=== PATIENT | female | born 1950 | race Caucasian/White ===

== ENCOUNTER 2017-12-08 15:52 | Emergency (ER) | payer MEDICARE, MEDICAID ==
--- NOTE | 2017-12-08 16:42 | RAD ---
Indication: Right foot pain. 4 views of the right foot reviewed. Diffuse osteopenia is noted. There is suggestion of a fracture at the base of the proximal phalanx of the fifth digit. No other fractures are noted. Clinical correlation is suggested. IMPRESSION: There is suggestion of a fracture at the base of the proximal end of the fifth digit.
[2017-12-08] MEDS ORDERED: oxyCODONE/Acetamin 5/325 MG* TAB PO ONE (16:49)
--- NOTE | 2017-12-08 17:01 | ED ---
Lower Extremity - HPI Summary HPI Summary: 66-year-old female presents with right foot pain today. States she kicked an ice block and has had pain continuously in her right foot. States her right foot has been swelling. She has a previous fractured her fifth metatarsal when she was younger. She states she has some pain right there and also pain in her forefoot and midfoot. She is not on blood thinners. She denies any numbness or tingling. She denies any other injury. She has history of fibromyalgia. - History of Current Complaint Chief Complaint: EDExtremityLower Stated Complaint: RT FT INJURY Time Seen by Provider: 12/08/17 16:01 Pain Intensity: 8 - Allergies/Home Medications Allergies/Adverse Reactions: Allergies Allergy/AdvReac Type Severity Reaction Status Date / Time MS Penicillins [Penicillins] Allergy Rash Verified 12/08/17 16:00 sesame seeds Allergy anaphylaxis Uncoded 12/08/17 16:00 PMH/Surg Hx/FS Hx/Imm Hx Endocrine/Hematology History: Denies: Hx Anticoagulant Therapy, Hx Blood Disorders Respiratory History: Reports: Hx Asthma Musculoskeletal History: Reports: Hx Rheumatoid Arthritis, Hx Osteoporosis Infectious Disease History: Unable to Obtain/Confirm Infectious Disease History: Denies: Traveled Outside the [place] in Last 30 Days - Family History Known Family History: Positive: Hypertension - Social History Alcohol Use: None Substance Use Type: Reports: Marijuana Smoking Status (MU): Never Smoked Tobacco Review of Systems Negative: Fever Negative: Chest Pain Negative: Shortness Of Breath Positive: Myalgia - right foot pain All Other Systems Reviewed And Are Negative: Yes Physical Exam Triage Information Reviewed: Yes Vital Signs On Initial Exam: Initial Vitals Temp Pulse Resp BP Pulse Ox 98.0 F 77 20 144/86 97 12/08/17 15:54 12/08/17 15:54 12/08/17 15:54 12/08/17 15:54 12/08/17 15:54 Vital Signs Reviewed: Yes Appearance: Positive: Well-Appearing Skin: Positive: Warm, Dry Head/Face: Positive: Normal Head/Face Inspection Eyes: Positive: Normal, Conjunctiva Clear Respiratory/Lung Sounds: Positive: Clear to Auscultation, Breath Sounds Present Cardiovascular: Positive: Normal, RRR Musculoskeletal: Positive: Limited @ - right foot, Edema Right - foot, Other - tenderness over dorsum of right foot and 5th metarsal, good pulses, capillary refill<2 secs, sensation grossly intact Neurological: Positive: Normal Psychiatric: Positive: Normal Diagnostics - Vital Signs Vital Signs Temp Pulse Resp BP Pulse Ox 12/08/17 15:54 98.0 F 77 20 144/86 97 - Laboratory Lab Statement: Any lab studies that have been ordered have been reviewed, and results considered in the medical decision making process. - Radiology foot Xray Interpretation: Positive (See Comments) - IMPRESSION: There is suggestion of a fracture at the base of the proximal end of the fifth digit. Radiology Interpretation Completed By: Radiologist Lower Extremity Course/Dx - Course Course Of Treatment: 66-year-old female presents with right foot pain today. States she kicked an ice block and has had pain continuously in her right foot. States her right foot has been swelling. She has a previous fractured her fifth metatarsal when she was younger. She states she has some pain right there and also pain in her forefoot and midfoot. She is not on blood thinners. She denies any numbness or tingling. She denies any other injury. She has history of fibromyalgia. on exam tenderness of right foot. neurovascular intact. xray shows 5th digit fracture. wanted to place in posterior walking splint but patient declined would prefer walking boot with cane. will have follow up with ortho. patient understand and agrees with plan. - Diagnoses Differential Diagnosis/HQI/PQRI: Positive: Fracture (Closed), Sprain, Strain Provider Diagnoses: Metatarsal fracture Discharge - Discharge Plan Condition: Good Disposition: HOME Prescriptions: HYDROcodone/ACETAMIN 5-325 MG* [[place] 5-325 TAB*] 1 tab PO Q6H PRN #12 tab MDD 4 PRN Reason: Pain Patient Education Materials: Foot Fracture in Adults (ED) Referrals: No Primary Care Phys,NOPCP [Primary Care Provider] - Nydia Hernandez MD [Medical Doctor] - Additional Instructions: Keep cam walking boot on area Try to stay off foot as much as possible Ice elevate Take Tylenol for pain, take narcotic for break through pain Follow-up with ortho Return to ED if developed any new or worsening symptoms
[2017-12-08] MEDS ORDERED: HYDROcodone/ACETAMIN 5-325 MG* 1 TAB PO ONE (17:19)
[2017-12-08 18:25] VITALS: BP 140/84
== END 2017-12-08 18:00 | disposition home or self-care (01) ==
LOC: ED 15:52
DX: S92.351A Displaced fracture of fifth metatarsal bone, right foot, initial encounter for closed fracture (principal); W22.09XA Striking against other stationary object, initial encounter; Y92.9 Unspecified place or not applicable; M79.7 Fibromyalgia
CPT/HCPCS: 99282; A9270-GY

== ENCOUNTER 2019-03-07 14:44 | Emergency (ER) | payer MEDICARE, MEDICAID ==
--- OUTSIDE RECORDS SUMMARY | 2019-03-07 15:02 | XMS REPORT | Continuity of Care Document ---
:1950 External Reference #:[id number] Author Name KerwinAnu moctezuma Care Team Providers Name Role Phone Dallas Estrada MD Primary Care Physician Unavailable Payers Date Identification Numbers Payment Provider Subscriber Effective: 2016 Policy Number: [id number] Medicare Rita Nelson PayID: [id number] [address] [place] [address] Policy Number: [id number] Medicaid Rita Nelson Group Name: 1 1 [address] PayID: [id number] [place] [address] Effective: 2016 Policy Number: [id number] [facility] Rita Nelson Onset: 2016 PayID: [id number] [address] [place] [address] Advance Directives Description No Information Available Problems Active Problems Provider Date Chronic obstructive lung disease Marleni Jurado, N.P. Onset: 02/23/2018 Pure hypercholesterolemia Marleni Jurado, N.P. Onset: 02/23/2018 Rheumatoid arthritis Marleni Jurado, N.P. Onset: 02/23/2018 Cigarette smoker Marleni Jurado, N.P. Onset: 02/23/2018 Family History Date Family Member(s) Observation Comments General Bladder Cancer General Cancer General Leukemia Father Bladder Cancer Mother Arthritis Social History Type Date Description Comments Sex Unknown Lives With Alone ETOH Use Denies alcohol use Tobacco Use Start: Unknown End: Patient is a former Quit March 2017. Smokes Unknown smoker pot occasionally Smoking Status Reviewed: 02/16/19 Patient is a former Quit March 2017. Smokes smoker pot occasionally Exercise Exercises rarely Type/Frequency Allergies, Adverse Reactions, Alerts Active Allergies Reaction Severity Comments Date Penicillin 08/27/2016 Sesame Seed Extract 01/20/2019 Medications Active Medications SIG Qnty Indications Ordering Date Provider Combivent Respimat inhale one puff by 4units J45.40 Marleni Adrien, 2018 mouth two times N.P. 20-100mcg/Act Aerosol Thumb Brace please use daily to 2units M54.2 Godfrey Reece, 01/18/2019 Misc stabilize thumb due to M.D. pain from carpometacarpal arthritis on the right (keep snug) icd9 715.14 with wrist splints Hot & Cold Bead apply daily to the 30units M05.89 Godfrey Reece, 2018 Neck Wrap neck for pain M.D. Pads If TENS Unit Apply to affected 1units M54.2 Marleni Jurado, 08/11/2018 areas Dx:m54.2, m54.6, N.P. m80.00xA, m54.17 M54.6 M80.00xA TENS Therapy apply as needed 60units M54.6 Marleni Jurado, 07/22/2018 Replacement Back N.P. Pads Misc Wrist Splint/Brace Wear on both wrists 2units G56.03 Marleni Jurado, 2017 at night while N.P. Misc sleeping Ventolin HFA 1 to 2 inhalations 18units J45.40 Marleni Jurado, 06/03/2018 every 4 hours as N.P. 108(90Base) mcg/Act needed Aerosol Compression panty hose stockings 2units I83.813 Marleni Jurado, 06/03/2018 Stockings 20 - 30 mm N.P. Misc Hydrocodone-Acetamin one tablet by mouth 14tabs M54.17 Godfrey Marcanodor, 07/2018 ophen twice daily as M.D. 5-325mg Tablets needed Fish Oil 1 by mouth twice a 60caps Marleni Jurado, 02/23/2018 1000mg day N.P. Capsules Magnesium-Oxide 1 by mouth every day 90tabs Marleni Jurado, 02/23/2018 N.P. 400(241.3mg) mg Tablets Iodine 225MG Marleni Jurado, 02/23/2018 N.P. Wheelchair times 1, use as S82.024A Ken F 08/27/2016 Misc needed for mobility MD Precious Vitamin B12 Unknown 3000mcg/ML Liquid Vitamin D3 Maximum 1 by mouth every day Unknown Strength 5000Unit Capsules History Medications TENS Unit Marleni Jurado, 07/28/2018 - N.P. 08/11/2018 TENS Therapy Pain apply to back as 1units M54.6 Marleni Razazoraida, 07/22/2018 - Relief needed for deep N.P. 07/28/2018 Device tissue pain Dx code:M54.6, M54.2 Advair Diskus inhale 1 puff by 60units J45.40 Marleni Razazoraida, 06/03/2018 - mouth two times a N.P. 01/20/2019 250-50mcg/Dose day Aerosol D3 High Potency take one 90caps Marleni Razazoraida, 02/23/2018 - capsule/tablet daily N.P. Unknown [id number] Capsules by mouth Flovent HFA 1 puff twice daily 12gm J45.30 Marleni Razazoraida, 02/23/2018 - N.P. 06/03/2018 110mcg/Act Aerosol Wheelchair power wheelchair 1units Ken Garo 09/30/2016 - Misc OT/PT wheelchair MD Precious 02/27/2018 evaluation Medrol take as directed per 21tabs M47.896 Ken Garo 09/10/2016 - 4mg dosepak instructions MD Precious 09/23/2016 Tablets [place] Take 1-2 tabs by 60tabs S82.024 Ken Wyman 08/27/2016 - 5-325mg mouth every 4 hours Sena Lang MD 02/23/2018 Tablets as needed for pain Wheelchair times 1, use as 1units S82.024 Ken Wyman 08/27/2016 - Misc needed for mobility Sena Lang MD 02/27/2018 Hydrocodone-Acetam Unknown - inophen 02/23/2018 5-325mg Tablets Immunizations CPT Code Status Date Vaccine Reaction Lot # [id number] Given 02/23/2018 Tetanus And Diptheria (Td) No immediate [id number] For Adult Use Preservative reaction...jh Free Vital Signs Date Vital Result Comment 02/16/2019 3:41pm Height 68 inches 5'8" Weight 229.00 lb Heart Rate 73 /min BP Systolic Sitting 132 mmHg BP Diastolic Sitting 86 mmHg Pain Level 8 O2 % BldC Oximetry 98 % BMI (Body Mass Index) 34.8 kg/m2 01/20/2019 11:01am Height 68 inches 5'8" Weight 230.00 lb Heart Rate 72 /min BP Systolic Sitting 124 mmHg BP Diastolic Sitting 84 mmHg Respiratory Rate 16 /min O2 % BldC Oximetry 97 % BMI (Body Mass Index) 35.0 kg/m2 01/18/2019 11:26am Height 68 inches 5'8" Weight 230.25 lb Heart Rate 64 /min BP Systolic Sitting 130 mmHg BP Diastolic Sitting 82 mmHg Pain Level 5 O2 % BldC Oximetry 98 % BMI (Body Mass Index) 35.0 kg/m2 07/22/2018 11:03am Height 68 inches 5'8" Weight 221.00 lb Heart Rate 68 /min BP Systolic 128 mmHg left 142/82 BP Diastolic 84 mmHg left 142/82 Body Temperature 97.9 F O2 % BldC Oximetry 98 % BMI (Body Mass Index) 33.6 kg/m2 07/21/2018 10:09am Height 68 inches 5'8" Weight 221.12 lb Heart Rate 63 /min BP Systolic 149 mmHg right arm BP Diastolic 86 mmHg right arm BP Systolic Sitting 142 mmHg left arm BP Diastolic Sitting 90 mmHg left arm Pain Level 1 O2 % BldC Oximetry 98 % BMI (Body Mass Index) 33.6 kg/m2 06/17/2018 10:50am Height 68 inches 5'8" Weight 225.00 lb Heart Rate 67 /min BP Systolic 128 mmHg BP Diastolic 80 mmHg Body Temperature 97.5 F O2 % BldC Oximetry 97 % BMI (Body Mass Index) 34.2 kg/m2 06/03/2018 4:13pm Height 68 inches 5'8" Weight 223.00 lb Heart Rate 67 /min BP Systolic 130 mmHg BP Diastolic 80 mmHg O2 % BldC Oximetry 97 % BMI (Body Mass Index) 33.9 kg/m2 05/11/2018 10:38am Height 68 inches 5'8" Weight 229.00 lb Heart Rate 59 /min BP Systolic Sitting 142 mmHg BP Diastolic Sitting 80 mmHg Respiratory Rate 14 /min Pain Level 0 BMI (Body Mass Index) 34.8 kg/m2 02/23/2018 12:51pm Height 68 inches 5'8" Weight 225.00 lb Heart Rate 68 /min BP Systolic 141 mmHg BP Diastolic 87 mmHg Pain Level 98 BMI (Body Mass Index) 34.2 kg/m2 12/24/2016 1:12pm Height 70.5 inches 5'10.50" Weight 223.00 lb Respiratory Rate 16 /min Pain Level 3 BMI (Body Mass Index) 31.5 kg/m2 10/27/2016 1:24pm Height 70.5 inches 5'10.50" Weight 223.00 lb Pain Level 0 BMI (Body Mass Index) 31.5 kg/m2 09/24/2016 11:25am Height 70.5 inches 5'10.50" Weight 223.00 lb Pain Level 2 BMI (Body Mass Index) 31.5 kg/m2 09/10/2016 1:05pm Heart Rate 74 /min Respiratory Rate 16 /min Pain Level 10 08/27/2016 10:14am Respiratory Rate 16 /min Pain Level 8 Results Test Date Facility Test Result H/L Range Note Laboratory test 01/05/2019 [facility] Medicare negative finding Lipid Profile 09/23/2018 [facility] Triglycerides 118 mg/dL 1 (Trig/Chol/HDL) [address] [place] [address] [phone] Cholesterol 193 mg/dL 2 HDL Cholesterol 50.3 mg/dL 3 LDL Cholesterol 119 mg/dL 4 Laboratory test 09/23/2018 [facility] Vitamin D 62.1 ng/mL High 20-[address] Total 25(Oh) [place] [address] [phone] Vitamin B12 > 1450 pg/mL High 180-914 5 Magnesium 1.8 mg/dL Low 1.9-2.7 CBC Auto Diff 09/23/2018 [facility] White Blood 8.6 10^3/uL N 3.5-10.[address] [place] [address] [phone] Red Blood Count 5.35 10^6/uL N 4.00-5.40 Hemoglobin 14.1 g/dL N 12.0-16.0 Hematocrit 44 % N 35-47 Mean Corpuscular Volume 82 fL N 80-97 Mean Corpuscular Hemoglobin 26 pg Low 27-31 Mean Corpuscular HGB Conc 32 g/dL N 31-36 Red Cell Distribution Width 14 % N 10.5-15 Platelet Count 232 10^3/uL N 150-450 Mean Platelet Volume 9.1 fL N 7.4-10.4 Abs Neutrophils 5.7 10^3/uL N 1.5-7.7 Abs Lymphocytes 2.0 10^3/uL N 1.0-4.8 Abs Monocytes 0.7 10^3/uL N 0-0.8 Abs Eosinophils 0.2 10^3/uL N 0-0.6 Abs Basophils 0 10^3/uL N 0-0.2 Abs Nucleated RBC 0 10^3/uL Granulocyte % 66.7 % Lymphocyte % 22.8 % Monocyte % 8.1 % Eosinophil % 2.0 % Basophil % 0.4 % Nucleated Red Blood Cells % 0 Comp Metabolic Panel 09/23/2018 [facility] Sodium 138 mmol/L N 135-[address] [place] [address] [phone] Potassium 4.7 mmol/L N 3.5-5.0 Chloride 105 mmol/L N 101-111 Co2 Carbon Dioxide 27 mmol/L N 22-32 Anion Gap 6 mmol/L N 2-11 Glucose 90 mg/dL N 70-100 Blood Urea Nitrogen 20 mg/dL N 6-24 Creatinine 1.07 mg/dL High 0.51-0.95 BUN/Creatinine Ratio 18.7 N 8-20 Calcium 10.2 mg/dL N 8.6-10.3 Total Protein 6.9 g/dL N 6.4-8.9 Albumin 4.3 g/dL N 3.2-5.2 Globulin 2.6 g/dL N 2-4 Albumin/Globulin Ratio 1.7 N 1-3 Total Bilirubin 0.70 mg/dL N 0.2-1.0 Alkaline Phosphatase 72 U/L N 34-104 Alt 12 U/L N 7-52 Ast 17 U/L N 13-39 Egfr Non- 51.0 >60 Egfr 61.7 >60 6 Protein 07/21/2018 [facility] Total 7.2 g/dL 6.3 - Electrophoresis [address] Protein(Pep) 7.9 [place] [address] [phone] Albumin 3.5 g/dL 3.4-4.7 Alpha-1 Globulin 0.3 g/dL 0.1-0.3 Alpha-2 Globulin 1.0 g/dL 0.6-1.0 Beta Globulin 1.1 g/dL 0.7-1.2 Gamma Globulin 1.4 g/dL 0.6-1.6 Albumin/Globulin Ratio 0.94 Impression See Comment 7 Laboratory test 05/16/2018 [facility] TSH (Thyroid 2.19 mcIU/mL N 0.34-5.60 8 finding [address] [facility] [place]) [place] [address] [phone] Vitamin B12 And 05/16/2018 [facility] Vitamin B12 451 pg/mL N 180-914 9 Folate Serum [address] [place] [phone] Folic Acid (Folate) > 20.00 ng/mL >3.99 10 Laboratory test 05/16/2018 [facility] Rheumatoid 54 IU/mL High <15 11 finding 101 [facility] [place] [address] [phone] Erythrocyte Sed Rate 20 mm/Hr N 0-40 12 C Reactive Protein 2.57 mg/L N <8.01 13 Creatine Kinase(CK) 223 U/L N 10-223 14 Vitamin D Total 25(Oh) 83.8 ng/mL High 20-50 15 Connective Tissue 05/16/2018 [facility] Anti-Nuclear 0.8 U [address] [place] [address] [place] [address] [phone] Cyclic Citrullinated Peptide <15.6 U 17 Interpretation See Comment 18 Comp Metabolic Panel 03/02/2018 [facility] Sodium 140 mmol/L N 139-[address] [place] [phone] [phone] Potassium 4.9 mmol/L N 3.5-5.0 Chloride 107 mmol/L N 101-111 Co2 Carbon Dioxide 30 mmol/L N 22-32 Anion Gap 3 mmol/L N 2-11 Glucose 78 mg/dL N 70-100 Blood Urea Nitrogen 21 mg/dL N 6-24 Creatinine 1.09 mg/dL High 0.51-0.95 BUN/Creatinine Ratio 19.3 N 8-20 Calcium 10.1 mg/dL N 8.6-10.3 Total Protein 6.6 g/dL N 6.4-8.9 Albumin 4.0 g/dL N 3.2-5.2 Globulin 2.6 g/dL N 2-4 Albumin/Globulin Ratio 1.5 N 1-3 Total Bilirubin 0.60 mg/dL N 0.2-1.0 Alkaline Phosphatase 56 U/L N 34-104 Alt 13 U/L N 7-52 Ast 19 U/L N 13-39 Egfr Non- 49.9 >60 Egfr 64.2 >60 19 Lipid Profile 03/02/2018 [facility] Triglycerides 135 mg/dL 20 (Trig/Chol/HDL) [address] [place] [address] [phone] Cholesterol 197 mg/dL 21 HDL Cholesterol 46.5 mg/dL 22 LDL Cholesterol 124 mg/dL 23 Laboratory test 02/23/2018 [facility] Cytology SEE RESULT BELOW 24 finding [address] [place] [address] [phone] 1 Desirable: <150 Borderline High: 150-199 High: 200-499 Very High: >500 2 Desirable: <200 Borderline High: 200-239 High: >239 3 Low: <40 Desirable: 40-60 High: >60 4 Desirable: <100 Near Optimal: 100-129 Borderline High: 130-159 High: 160-189 Very High: >189 5 Normal Range 180 to 914 Indeterminate Range 145 to 180 Deficient Range <145 6 Because ethnic data is not always readily available, this report includes an eGFR for both -Americans and non- Americans. The National Kidney Disease Education Program (NKDEP) does not endorse the use of the MDRD equation for patients that are not between the ages of 18 and 70, are , have extremes of body size, muscle mass, or nutritional status, or are non- or non-. According to the National Kidney Foundation, irrespective of diagnosis, the stage of the disease is based on the level of kidney function: Stage Description GFR(mL/min/1.73 m(2)) 1 Kidney damage with normal or decreased GFR 90 2 Kidney damage with mild decrease in GFR 60-89 3 Moderate decrease in GFR 30-59 4 Severe decrease in GFR 15-29 5 Kidney failure <15 (or dialysis) 7 RESULT: No apparent monoclonal protein on serum electrophoresis. Test Performed by: [address] [address] 8 Please check labs this week 9 Normal Range 180 to 914 Indeterminate Range 145 to 180 Deficient Range <145 10 Please check labs this week 11 Please check labs this week 12 Please check labs this week 13 Please check labs this week 14 Please check labs this week 15 Please check labs this week 16 REFERENCE VALUE <=1.0 (Negative) 17 REFERENCE VALUE <20.0 (Negative) 18 Tests for antibodies to dsDNA and LALY antigens are not performed automatically unless the JAMES result is > or= 3.0 U. Studies performed at [facility] indicate that positive JAMES results <3.0 U are rarely accompanied by positive second order tests. Test Performed by: [address] [address] 19 Because ethnic data is not always readily available, this report includes an eGFR for both -Americans and non- Americans. The National Kidney Disease Education Program (NKDEP) does not endorse the use of the MDRD equation for patients that are not between the ages of 18 and 70, are , have extremes of body size, muscle mass, or nutritional status, or are non- or non-. According to the National Kidney Foundation, irrespective of diagnosis, the stage of the disease is based on the level of kidney function: Stage Description GFR(mL/min/1.73 m(2)) 1 Kidney damage with normal or decreased GFR 90 2 Kidney damage with mild decrease in GFR 60-89 3 Moderate decrease in GFR 30-59 4 Severe decrease in GFR 15-29 5 Kidney failure <15 (or dialysis) 20 Desirable: <150 Borderline High: 150-199 High: 200-499 Very High: >500 21 Desirable: <200 Borderline High: 200-239 High: >239 22 Low: <40 Desirable: 40-60 High: >60 23 Desirable: <100 Near Optimal: 100-129 Borderline High: 130-159 High: 160-189 Very High: >189 24 SEE RESULT BELOW Name: RITA NELSON Letha : [address]: Marleni Jurado NP Acct: [id number] Unit: [id number] AGE: 67 Location: [facility] Re02/23/18 SEX: F Status: REG REF SPEC: [id number] MAR: 02/23/18-[address]: Marleni Jurado NP REQ: [id number] RECD: 02/23/18 STATUS: SOUT _ ORDERED: TP IMAGE ANALYS, HPV/Thin Prep, HPV 16/18 GENE COMMENTS: [id number] Negative for Intraepithelial lesion or Malignancy A. Vaginal Specimen Adequacy: Satisfactory of evaluation Patient Information: HPV: High risk HPV RNA testing regardless of pap results. HPV 16/18 Genotype Reflex Actual Specimen Date: 02/23/18 LMP If Unknown: unknown Spec Date if unknown: unknown ?: N Post Menopausal?: Y Hysterectomy?: Y Previous Abnormal Pap Smears?:N Date Time Test Result Flag (u) Normal Range 02/23/18 1504 @ HPV RNA RFLX GE Negative Negative @ @ The high-risk HPV types detected by the assay include: 16, @ 18, 31, 33, 35, 39, 45, 51, 52, 56, 58, 59, 66, and 68. Signed by and Reported on: LIZBETH Walker(ASCP) [id number] This Pap test was evaluated with the assistance of the reKode EducationPrep Test Imaging System. Due to cytologic findings at the heating and ventilating worker microscope, comprehensive manual rescreening by a Financing Analyst may be required. The Pap Smear is a screening test designed to aid in the detection of premalignant and malignant conditions of the uterine cervix. It is not a diagnostic procedure and should not be used as the sole means of detecting cervical cancer. Both false- positive and false- negative reports do occur. Depending on your risk status, a Pap smear should be obtained and evaluated every 1-3 years. END OF REPORT DEPARTMENT OF PATHOLOGY, [address] [place] [address] Logan Celis M.D. Director TIESHA # [id number] Procedures Date Code Description Status 05/16/2018 271593909 Bone Mineral Density Test Completed 03/29/2018 36752480 Mammogram Completed 08/27/2016 12923 FX Patella Care Completed 08/27/2016 35179 FX Patella Care Completed Encounters Type Date Location Provider Dx Diagnosis Office Visit 01/20/2019 Yon Jurado, J45.40 Moderate persistent 11:00a Medicine - N.P. asthma, [place] uncomplicated M54.2 Cervicalgia G89.4 Chronic pain syndrome E53.9 Vitamin B deficiency, unspecified Office Visit 01/18/2019 11:00a Rheumatology Services Godfrey Reece M54.2 Cervicalgia Of [place] M54.6 Pain in thoracic spine M05.89 Oth rheumatoid arthritis w rheumatoid factor mult site M80.00xA Age-rel osteopor w current path fracture, unsp site, init Office Visit 07/22/2018 11:00a Yon Jurado M54.2 Cervicalgia Medicine - N.P. [place] M54.6 Pain in thoracic spine E78.00 Pure hypercholesterolemia, unspecified Office Visit 07/21/2018 10:20a Rheumatology Godfrey M05.89 Oth rheumatoid Services Of Yon Reece M.D. arthritis w rheumatoid factor mult site M54.2 Cervicalgia M80.00xA Age-rel osteopor w current path fracture, unsp site, init M54.6 Pain in thoracic spine Office Visit 06/17/2018 11:00a Yon Jurado M54.2 Cervicalgia Medicine - N.P. [place] M54.6 Pain in thoracic spine F41.1 Generalized anxiety disorder Office Visit 06/03/2018 4:00p Yon Jurado, F33.9 Major depressive Medicine - N.P. 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 osteoporosis w/o current pathological fracture R20.8 Other disturbances of skin sensation M79.7 Fibromyalgia G89.29 Other chronic pain Office Visit 02/23/2018 1:00p Yon Jurado, Z00.00 [facility] Medicine N.P. general adult medical exam w/o abnormal findings Z12.31 Encntr screen mammogram for malignant neoplasm of breast J44.9 Chronic obstructive pulmonary disease, unspecified M06.9 Rheumatoid arthritis, unspecified E78.00 Pure hypercholesterolemia, unspecified F17.218 Nicotine dependence, cigarettes, w oth disorders J45.30 Mild persistent asthma, uncomplicated E04.1 Nontoxic single thyroid nodule N20.0 Calculus of kidney M81.0 Age-related osteoporosis w/o current pathological fracture Z23 Encounter for immunization Office Visit 12/24/2016 1:00p Orthopedic Ken F S82.025D Nondisp Services Of MD Precious longitud fx l C.M.A. patella, subs for clos fx w routn heal M17.12 Unilateral primary osteoarthritis, left knee Office Visit 09/24/2016 Orthopedic Ken F M47.896 Other spondylosis, 11:20a Services Of MD Precious lumbar region C.M.A. M54.10 Radiculopathy, site unspecified S82.025D Nondisp longitud fx l patella, subs for clos fx w routn heal S82.024D Nondisp longitud fx r patella, subs for clos fx w routn heal Office Visit 09/10/2016 11:30a Orthopedic Ken F S82.024D Nondisp Services Of MD Precious longitud fx r C.M.A. patella, subs for clos fx w routn heal S82.024D Nondisp longitud fx r patella, subs for clos fx w routn heal M54.10 Radiculopathy, site unspecified M54.10 Radiculopathy, site unspecified Plan of Treatment Future Appointment(s):05/18/2019 11:00 am - Godfrey Reece M.D. at [facility]02/16/2019 - Godfrey Reece M.D.M54.2 JbihohizhfbE89.4 Chronic pain tudrjolfC87.89 Other rheumatoid arthritis with rheumatoid factor of buvcjhgU16.049 Primary osteoarthritis, unspecified hand
--- OUTSIDE RECORDS SUMMARY | 2019-03-07 15:02 | XMS REPORT | Continuity of Care Document ---
:1950 External Reference #:[id number] Author Name KerwinAnu moctezuma Care Team Providers Name Role Phone Dallas Estrada MD Primary Care Physician Unavailable Payers Date Identification Numbers Payment Provider Subscriber Effective: 2016 Policy Number: [id number] Medicare Rita Nelson PayID: [id number] [address] [place] [address] Policy Number: [id number] Medicaid Rita Nelson Group Name: 1 1 [address] PayID: [id number] [place] [address] Effective: 2016 Policy Number: [id number] [facility] Rita Nelson Onset: 2016 PayID: [id number] [address] [place] [address] Advance Directives Description No Information Available Problems [...] Razazoraida, 02/23/2018 - capsule/tablet daily N.P. Unknown 55298Glmp Capsules by mouth Flovent HFA 1 puff twice daily 12gm J45.30 Marleni Razazoraida, 02/23/2018 - N.P. 06/03/2018 110mcg/Act Aerosol Wheelchair power wheelchair 1units Ken Garo 09/30/2016 - Misc OT/PT wheelchair MD Precious 02/27/2018 evaluation Medrol take as directed per 21tabs M47.896 Ken Garo 09/10/2016 - 4mg dosepak instructions MD Precious 09/23/2016 Tablets [place] Take 1-2 tabs by 60tabs S82.024 Ken Wyman 08/27/2016 - 5-325mg mouth every 4 hours Sena Lang MD 02/23/2018 Tablets as needed for pain Wheelchair times 1, use as 1units S82.024 Ken Wyman 08/27/2016 - Misc needed for mobility Sena Lang MD 02/27/2018 Hydrocodone-Acetam Unknown - inophen 02/23/2018 5-325mg Tablets Immunizations CPT Code Status Date Vaccine Reaction Lot # [id number] Given 02/23/2018 Tetanus And Diptheria (Td) No [...] Result H/L Range Note Laboratory test 01/05/2019 [facility] Medicare negative finding Lipid Profile 09/23/2018 [facility] Triglycerides 118 mg/dL 1 (Trig/Chol/HDL) [address] [place] [address] [phone] Cholesterol 193 mg/dL 2 HDL Cholesterol 50.3 mg/dL 3 LDL Cholesterol 119 mg/dL 4 Laboratory test 09/23/2018 [facility] Vitamin D 62.1 ng/mL High 20-[address] Total 25(Oh) [place] [address] [phone] Vitamin B12 > 1450 pg/mL High 180-914 5 Magnesium 1.8 mg/dL Low 1.9-2.7 CBC Auto Diff 09/23/2018 [facility] White Blood 8.6 10^3/uL N 3.5-10.[address] [place] [address] [phone] Red Blood Count 5.35 10^6/uL N 4.00-5.40 [...] Cells % 0 Comp Metabolic Panel 09/23/2018 [facility] Sodium 138 mmol/L N 135-[address] [place] [address] [phone] Potassium 4.7 mmol/L N 3.5-5.0 Chloride 105 [...] >60 Egfr 61.7 >60 6 Protein 07/21/2018 [facility] Total 7.2 g/dL 6.3 - Electrophoresis [address] Protein(Pep) 7.9 [place] [address] [phone] Albumin 3.5 g/dL 3.4-4.7 Alpha-1 Globulin 0.3 g/dL 0.1-0.3 Alpha-2 Globulin 1.0 g/dL 0.6-1.0 Beta Globulin 1.1 g/dL 0.7-1.2 Gamma Globulin 1.4 g/dL 0.6-1.6 Albumin/Globulin Ratio 0.94 Impression See Comment 7 Laboratory test 05/16/2018 [facility] TSH (Thyroid 2.19 mcIU/mL N 0.34-5.60 8 finding [address] [facility] Stim [place]orm) [place] [address] [phone] Vitamin B12 And 05/16/2018 [facility] Vitamin B12 451 pg/mL N 180-914 9 Folate Serum [address] [place] [address] [phone] Folic Acid (Folate) > 20.00 ng/mL >3.99 10 Laboratory test 05/16/2018 [facility] Rheumatoid 54 IU/mL High <15 11 finding [address] [facility] [place] [address] [phone] Erythrocyte Sed Rate 20 mm/Hr N 0-40 12 C Reactive Protein 2.57 mg/L N <8.01 13 Creatine Kinase(CK) 223 U/L N 10-223 14 Vitamin D Total 25(Oh) 83.8 ng/mL High 20-50 15 Connective Tissue 05/16/2018 [facility] Anti-Nuclear 0.8 U [address] [place] [address] [place] [address] [phone] Cyclic Citrullinated Peptide <15.6 U 17 Interpretation See Comment 18 Comp Metabolic Panel 03/02/2018 [facility] Sodium 140 mmol/L N 139-[address] [place] [address] [phone] Potassium 4.9 mmol/L N 3.5-5.0 Chloride 107 [...] Egfr 64.2 >60 19 Lipid Profile 03/02/2018 [facility] Triglycerides 135 mg/dL 20 (Trig/Chol/HDL) [address] [place] [address] [phone] Cholesterol 197 mg/dL 21 HDL Cholesterol 46.5 mg/dL 22 LDL Cholesterol 124 mg/dL 23 Laboratory test 02/23/2018 [facility] Cytology SEE RESULT BELOW 24 finding [address] [place] [address] [phone] 1 Desirable: <150 Borderline High: 150-199 High: [...] protein on serum electrophoresis. Test Performed by: [address] [address] 8 Please check labs this week 9 [...] > or= 3.0 U. Studies performed at [facility] indicate that positive JAMES results <3.0 U are rarely accompanied by positive second order tests. Test Performed by: [address] [address] Because ethnic data is not always [...] [address]: Marleni Jurado NP Acct: [id number] Unit: [id number] AGE: 67 Location: [facility] Re02/23/18 SEX: F Status: REG REF SPEC: [id number] MAR: 02/23/18-[address]: Marleni Jurado NP REQ: [id number] RECD: 02/23/18 STATUS: SOUT _ ORDERED: TP IMAGE ANALYS, HPV/Thin Prep, HPV 16/18 GENE COMMENTS: [id number] Negative for Intraepithelial lesion or Malignancy A. [...] Signed by and Reported on: LIZBETH Walker(ASCP) [id number] This Pap test was evaluated with the assistance of the Global QuorumPrep Test Imaging System. Due to cytologic findings at the corporate operations compliance manager microscope, comprehensive manual rescreening by a Material Stockkeeper Yard may be required. The Pap Smear is [...] years. END OF REPORT DEPARTMENT OF PATHOLOGY, [address] [place] [address] Logan Celis M.D. Director TIESHA # [id number] Procedures Date Code Description Status 05/16/2018 [id number] Bone Mineral Density Test Completed 03/29/2018 [id number] Mammogram Completed 08/27/2016 40563 FX Patella Care Completed 08/27/2016 68704 FX Patella Care Completed Encounters Type Date Location Provider Dx Diagnosis Office Visit 01/20/2019 Yon Jurado, J45.40 Moderate persistent 11:00a Medicine - N.P. asthma, [place] uncomplicated M54.2 Cervicalgia G89.4 Chronic pain syndrome [...] Office Visit 02/23/2018 1:00p Yon Jurado, Z00.00 [facility] Medicine N.P. general adult medical exam w/o [...] Godfrey Reece M.D. at [facility] [address]/16/2019 - Godfrey Reece M.D.M54.2 FssybhgepbzL16.4 Chronic pain jrnrwyqtG05.89 Other rheumatoid arthritis with rheumatoid factor of uzcfputO49.049 Primary osteoarthritis, unspecified hand
[2019-03-07] MEDS ORDERED: Al Hydrox/Mg Hydrox/Simet LIQ* 30 ML UDC PO ONE (15:07)
[2019-03-07] MEDS ORDERED: NS 0.9% 1000 ML** 1,000 ML IV ONE (15:07)
[2019-03-07] MEDS ORDERED: Ondansetron INJ* 2 MG/ML VIAL IV ONE (15:07)
--- NOTE | 2019-03-07 15:21 | ED ---
Nausea/Vomiting/Diarrhea HPI - HPI Summary HPI Summary: Patient is a 68-year-old female presenting to the ED with nausea, vomiting, diarrhea after eating pj which she placed on her countertops to ripen prior to making lemonade. She states this has happened once before. She states she knows she has food poisoning from the pj as immediately following eating the pj, she develops profuse diarrhea. Symptoms began 2 days ago after making lemonade. She states she tried to eat some yogurt today and "it went right through me." She states she is dehydrated. Hx of gastric bypass.. She had habitually does lemon water cleanses. She has not done one of these for several months. - History of Current Complaint Chief Complaint: Vinny Stated Complaint: I HAVE FOOD POISONING PER PT Time Seen by Provider: 03/07/19 15:00 Hx Obtained From: Patient ?: No Onset/Duration: Sudden Onset Timing: Constant Severity Initially: Mild Severity Currently: Mild Pain Intensity: 8 Pain Scale Used: 0-10 Numeric Location: Epigastric Character: Cramping Aggravating Factor(s): Nothing Alleviating Factor(s): Nothing Nausea/Vomiting Presence: None Vomiting Frequency: Every 1-2 hours Nausea/Vomiting Duration: 12-24 hours Diarrhea Presence: Yes Diarrhea Frequency: Every 1-2 hours Diarrhea Duration: 12-24 hours - Risk Factors Influenza Risk Factors: Negative - Allergies/Home Medications Allergies/Adverse Reactions: Allergies Allergy/AdvReac Type Severity Reaction Status Date / Time Penicillins Allergy Mild Itching Verified 03/07/19 14:56 sesame seed Allergy Anaphylatic Verified 03/07/19 14:56 Shock PMH/Surg Hx/FS Hx/Imm Hx Previously Healthy: Yes Endocrine/Hematology History: Reports: Hx Anemia - past Denies: Hx Anticoagulant Therapy, Hx Blood Disorders, Hx Diabetes Cardiovascular History: Reports: Hx Hypertension, Other Cardiovascular Problems/ Disorders - mitral valve prolapse Denies: Hx Pacemaker/ICD Respiratory History: Reports: Hx Asthma Denies: Hx Sleep Apnea - would need study (snores at night, wakes in morning tired) GI History: Reports: Hx Gastroesophageal Reflux Disease, Hx Irritable Bowel, Hx Ulcer - aged 11 years old History: Denies: Hx Renal Disease Musculoskeletal History: Reports: Hx Arthritis, Hx Rheumatoid Arthritis, Hx Back Problems, Hx Osteoporosis Sensory History: Denies: Hx Hearing Aid Neurological History: Reports: Hx Migraine, Hx Transient Ischemic Attacks (TIA) - viral meningitis Psychiatric History: Reports: Hx Depression Denies: Hx Panic Disorder - Cancer History Cancer Type, 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 SKIN TAG REMOVED - Surgical History Surgery Procedure, Year, and Place: GASTRIC BYPASS. HYSTERECTOMY. GALLBLADDER. TONSILS/ADENOIDS. APPENDIX - Immunization History Hx Pertussis Vaccination: No Immunizations Up to Date: Yes Infectious Disease History: No Infectious Disease History: Denies: Traveled Outside the [place] in Last 30 Days - Family History Known Family History: Positive: Hypertension - Social History Occupation: Employed Full-time, Employed Part-time Alcohol Use: None Hx Substance Use: Yes Substance Use Type: Reports: Marijuana Substance Use Comment - Amount & Last Used: for pain and sleep Smoking Status (MU): Never Smoked Tobacco Review of Systems Constitutional: Negative Negative: Fever, Chills, Fatigue, Skin Diaphoresis Negative: Palpitations Negative: Shortness Of Breath, Cough Positive: Abdominal Pain, Vomiting, Diarrhea, Nausea Genitourinary: Negative Positive: no symptoms reported, see HPI Negative: Arthralgia, Myalgia Skin: Negative Neurological: Negative All Other Systems Reviewed And Are Negative: Yes Physical Exam Triage Information Reviewed: Yes Vital Signs On Initial Exam: Initial Vitals Temp Pulse Resp BP Pulse Ox 97.6 F 79 16 118/74 96 03/07/19 14:52 03/07/19 14:52 03/07/19 14:52 03/07/19 14:52 03/07/19 14:52 Vital Signs Reviewed: Yes Appearance: Positive: Well-Appearing, Well-Nourished Skin: Positive: Warm, Skin Color Reflects Adequate Perfusion Head/Face: Positive: Normal Head/Face Inspection Eyes: Positive: EOMI, ROSA, Conjunctiva Clear Neck: Positive: Supple, No Lymphadenopathy Respiratory/Lung Sounds: Positive: Clear to Auscultation, Breath Sounds Present Cardiovascular: Positive: RRR, Pulses are Symmetrical in both Upper and Lower Extremities Abdomen Description: Positive: Other: - epigastric pain Bowel Sounds: Positive: Present Musculoskeletal: Positive: Normal, Strength/ROM Intact Neurological: Positive: Alert, Oriented to Person Place, Time, Speech Normal Psychiatric: Positive: Normal, Affect/Mood Appropriate Diagnostics - Vital Signs Vital Signs Temp Pulse Resp BP Pulse Ox 03/07/19 14:52 97.6 F 79 16 118/74 96 - Laboratory Result Diagrams: 03/07/19 15:18 03/07/19 15:18 Lab Statement: Any lab studies that have been ordered have been reviewed, and results considered in the medical decision making process. Naus/Vom/Diarrhea Course/Dx - Course Course Of Treatment: Patient is evaluated for a potential food poisoning/ gastroenteritis. She endorses nausea, vomiting, diarrhea since drinking lemonade with pj which were sent out on her counter to write him. She states this happened during the past. She states when she over ripens her pj, they cause these symptoms. Endorsing epigastric pain following n/v. Denies any pain otherwise. She is given 1 L fluids and Zofran. She is given Maalox plus. Patient is feeling improved after medications and fluids. She is comfortable with discharge at this time. Discussed with patient she will need to return to the ED or follow-up with PCP if she continues to have diarrhea and/ or other symptoms. - Differential Dx/Diagnosis Provider Diagnosis: Nausea vomiting and diarrhea Condition At Discharge: Stable Discharge - Sign-Out/Discharge Documenting (check all that apply): Patient Departure Patient Received Moderate/Deep Sedation with Procedure: No - Discharge Plan Condition: Stable Disposition: HOME Prescriptions: Ondansetron ODT TAB* [Zofran 4 MG Odt TAB*] 4 mg PO Q6H PRN #12 tab.odt MDD 4 PRN Reason: Nausea Patient Education Materials: Gastroenteritis (ED) Referrals: Marleni Jurado, DIETARY SERVER [Primary Care Provider] - Additional Instructions: Zofran as needed for nausea and vomiting Drink plenty of fluids Eat a well balanced diet If you continue to have diarrhea - follow up with your PCP or return to the ED - Billing Disposition and Condition Condition: STABLE Disposition: Home
[2019-03-07 15:23] LABS: ABS Eosinophils 0.1 10^3/ul (0-0.6); ABS Lymphocytes 2.1 10^3/ul (1.0-4.8); ABS Monocytes 1.3 10^3/ul (0-0.8); ABS Neutrophils 6.2 10^3/ul (1.5-7.7); Eosinophil % 1.1 %; Hematocrit 49 % (35-47); Lymphocyte % 21.7 %; Mean Corpuscular HGB Conc 33 g/dL (31-36); Mean Corpuscular Hemoglobin 26 pg (27-31); Mean Corpuscular Volume 80 fL (80-97); Mean Platelet Volume 8.5 fL (7.4-10.4); Nucleated Red Blood Cells % 0.1; Platelet Count 282 10^3/uL (150-450); Red Blood Count 6.09 10^6 /uL (3.70-4.87); Red Cell Distribution Width 15 % (10.5-15); White Blood Count 9.8 10^3/uL (3.5-10.8)
[2019-03-07 15:38] LABS: Albumin 4.8 g/dL (3.2-5.2); Calcium 10.8 mg/dL (8.6-10.3); Potassium 4.2 mmol/L (3.5-5.0); Total Bilirubin 0.9 mg/dL (0.2-1.0)
[2019-03-07 15:44] LABS: Albumin/Globulin Ratio 1.3 (1-3); BUN/Creatinine Ratio 12.7 (8-20); EGFR African American 37.3 (>60); EGFR Non-African American 30.8 (>60); Globulin 3.7 g/dL (2-4); Total Protein 8.5 g/dL (6.4-8.9)
[2019-03-07 16:38] VITALS: BP 121/96
== END 2019-03-07 16:38 | disposition home or self-care (01) ==
LOC: ED 14:44
DX: R11.2 Nausea with vomiting, unspecified (principal); R19.7 Diarrhea, unspecified; I10 Essential (primary) hypertension; Z88.0 Allergy status to penicillin; Z86.73 Personal history of transient ischemic attack (TIA), and cerebral infarction without residual deficits
CPT/HCPCS: 36415; 80053; 83605; 85025; 96374; 96375; 99283; A9270-GY; J2405

== ENCOUNTER 2019-03-23 10:01 | Emergency (ER) | payer MEDICARE, MEDICAID ==
--- NOTE | 2019-03-23 10:44 | ED ---
Back Pain - HPI Summary HPI Summary: Patient is a 68-year-old female who presents emergency department for left low back pain times several days. Patient states she has chronic history of back pain. She states her pain is usually on the right side of the last week it is shifted left. Pain does not radiate into legs or abdomen. She denies chest pain, shortness breath, fever, bowel or bladder incontinence or retention, numbness, tingling or weakness in extremities. Patient notes that last week she had food poisoning and was vomiting frequently, symptoms have resolved. Patient states she currently is not taking any analgesics but does have Lortab as needed. Patient denies any specific injuries. Patient states pain is been so severe she is unable to to her ADLs at home. Symptoms are moderate in severity. Movement makes symptoms worse. Nothing makes symptoms better. - History of Current Complaint Chief Complaint: EDBackInjuryPain Stated Complaint: BACK PAIN PER PT Time Seen by Provider: 03/23/19 10:27 Hx Obtained From: Patient Pain Intensity: 10 - Allergies/Home Medications Allergies/Adverse Reactions: Allergies Allergy/AdvReac Type Severity Reaction Status Date / Time Penicillins Allergy Mild Itching Verified 03/23/19 10:02 sesame seed Allergy Anaphylatic Verified 03/23/19 10:02 Shock Home Medications: Home Medications Ammonium and Potassium Iodides [Iodides Tincture] 3 drop SL DAILY 03/23/19 [ History Confirmed 03/23/19] Cetirizine* [ZyrTEC 10 MG TAB*] 10 mg PO DAILY PRN 03/23/19 [History Confirmed 03/23/19] HYDROcodone/ACETAMIN 5-325 MG* [[place] 5-325 TAB*] 1 tab PO BID PRN MDD 2 tabs [History Confirmed 03/23/19] PMH/Surg Hx/FS Hx/Imm Hx Previously Healthy: Yes Endocrine/Hematology History: Reports: Hx Anemia - past Denies: Hx Anticoagulant Therapy, Hx Blood Disorders, Hx Diabetes Cardiovascular History: Reports: Hx Hypertension, Other Cardiovascular Problems/ Disorders - mitral valve prolapse Denies: Hx Pacemaker/ICD Respiratory History: Reports: Hx Asthma Denies: Hx Sleep Apnea - would need study (snores at night, wakes in morning tired) GI History: Reports: Hx Gastroesophageal Reflux Disease, Hx Irritable Bowel, Hx Ulcer - aged 11 years old History: Denies: Hx Renal Disease Musculoskeletal History: Reports: Hx Arthritis, Hx Rheumatoid Arthritis, Hx Back Problems, Hx Osteoporosis Sensory History: Denies: Hx Hearing Aid Neurological History: Reports: Hx Migraine, Hx Transient Ischemic Attacks (TIA) - viral meningitis Psychiatric History: Reports: Hx Depression Denies: Hx Panic Disorder - Cancer History Cancer Type, 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 SKIN TAG REMOVED - Surgical History Surgery Procedure, Year, and Place: GASTRIC BYPASS. HYSTERECTOMY. GALLBLADDER. TONSILS/ADENOIDS. APPENDIX Infectious Disease History: No Infectious Disease History: Denies: Traveled Outside the [place] in Last 30 Days - Family History Known Family History: Positive: Hypertension - Social History Occupation: Disabled Lives: With Family Alcohol Use: None Hx Substance Use: Yes Substance Use Type: Reports: Marijuana Substance Use Comment - Amount & Last Used: for pain and sleep Smoking Status (MU): Never Smoked Tobacco Review of Systems Cardiovascular: Negative Negative: Chest Pain Respiratory: Negative Negative: Shortness Of Breath Gastrointestinal: Negative Negative: Abdominal Pain, Vomiting, Diarrhea Genitourinary: Negative Negative: dysuria, flank pain Positive: Other - low, left back pain Skin: Negative Neurological: Negative Negative: Weakness, Paresthesia, Numbness All Other Systems Reviewed And Are Negative: Yes Physical Exam Triage Information Reviewed: Yes Vital Signs On Initial Exam: Initial Vitals Temp Pulse Resp BP Pulse Ox 98.2 F 77 16 171/104 99 03/23/19 10:01 03/23/19 10:01 03/23/19 10:01 03/23/19 10:01 03/23/19 10:01 Vital Signs Reviewed: Yes Appearance: Positive: Well-Appearing - Pt. sitting in wheelchair. Irritated and yelling at times. Skin: Positive: Warm, Dry Head/Face: Positive: Normal Head/Face Inspection Eyes: Positive: Normal, EOMI, ROSA Neck: Positive: Supple Musculoskeletal: Positive: Other - 5/5 strength in lower extremities. No midline lumbar tenderness. Pain over left SI region. No CVA tenderness. Neurological: Positive: Normal, CN Intact II-III Psychiatric: Positive: Affect/Mood Appropriate Diagnostics - Vital Signs Vital Signs Temp Pulse Resp BP Pulse Ox 03/23/19 10:01 98.2 F 77 16 171/104 99 - Laboratory Lab Statement: Any lab studies that have been ordered have been reviewed, and results considered in the medical decision making process. Back Pain Course/Dx - Course Course Of Treatment: Patient presenting with low back pain. She has no neurological deficits on exam or evidence of cauda equina syndrome. Patient noted she is unable to move around at home and perform activities daily living but patient stands up easily from wheelchair in room. Patient irritated with her pain but does not want pain medication. Will obtain CT scan lumbar spine further evaluation. CT scan per radiology: IMPRESSION: 1. DEGENERATIVE DISC DISEASE AND OSTEOARTHRITIS. 2. THERE IS MODERATE TO SEVERE NARROWING OF THE CENTRAL CANAL AT L3-L4 WITH MILD. NARROWING AT L4-L5. 3. THERE IS MULTILEVEL NEURAL FORAMINAL NARROWING DESCRIBED ABOVE. On re-exam pt. is calmer. Results discussed. Pt. is states she is resistant to take medication but agrees to a steroid pack. Pt. notes she has an apt. with the pain clinic coming up. Pt. states she is frustrated with her living situation and feels she cannot live alone and is trying to get into an assisted living facility but states they are all full. Offered social service consult which pt. declines. She will f.u with PCP and pain clinic. To return to ER if sxs change or worsen. - Diagnoses Differential Diagnosis/HQI/PQRI: Positive: Epidural Abscess, Fracture, Herniated Disc, Osteoporosis, Strain, Sprain Provider Diagnoses: Disc herniation, Degenerative disc disease Discharge - Sign-Out/Discharge Documenting (check all that apply): Patient Departure Patient Received Moderate/Deep Sedation with Procedure: No - Discharge Plan Condition: Good Disposition: HOME Prescriptions: methylPREDNISolone [Medrol Dosepak 4 MG*] 0 mg PO .SEE CHARLEY INSTRUCTION #1 tab Patient Education Materials: Lumbar Disc Herniation (ED), Degenerative Disc Disease (ED) Referrals: Marleni Jurado NP [Primary Care Provider] - Additional Instructions: Follow up with the pain clinic as scheduled Apply warm compresses to low back Steroid pack as directed Return to ER for increased pain, loss of bowel or bladder function, leg weakness /numbness, or if concerned - Billing Disposition and Condition Condition: GOOD Disposition: Home
[2019-03-23 12:39] VITALS: BP 150/92
== END 2019-03-23 12:37 | disposition home or self-care (01) ==
LOC: ED 10:01
DX: M51.26 Other intervertebral disc displacement, lumbar region (principal); M51.36 Other intervertebral disc degeneration, lumbar region; I10 Essential (primary) hypertension; J45.909 Unspecified asthma, uncomplicated; K21.9 Gastro-esophageal reflux disease without esophagitis; K58.9 Irritable bowel syndrome, unspecified; M06.9 Rheumatoid arthritis, unspecified; F32.9 Major depressive disorder, single episode, unspecified; Z88.0 Allergy status to penicillin; Z86.73 Personal history of transient ischemic attack (TIA), and cerebral infarction without residual deficits; Z98.84 Bariatric surgery status
CPT/HCPCS: 72131; 99282

== ENCOUNTER 2019-04-04 12:27 | Emergency (ER) | payer MEDICARE, MEDICAID ==
[2019-04-04] MEDS ORDERED: Ibuprofen TAB* 600 MG PO ONE (14:10)
[2019-04-04] MEDS ORDERED: HYDROcodone/ACETAMIN 5-325 MG* 1 TAB PO ONE (14:11)
[2019-04-04] MEDS ORDERED: DOXYcycline CAP(*) 100 MG PO ONE (14:12)
[2019-04-04 16:05] VITALS: BP 151/83
--- NOTE | 2019-04-04 16:57 | ED ---
Skin Complaint - HPI Summary HPI Summary: Patient is a 68-year-old female who presents to the ED with dog bites/ lacerations to the left forearm. Endorses pain and swelling to the L forearm. Denies fevers. Denies other injuries. Tetanus UTD. Dog is owned by neighbor - up to date with vaccinations per patient and funeral director/embalmer/owner. Denies concerns. Patient states she will have police investigate further. - History of Current Complaint Chief Complaint: EDAnimalBite Time Seen by Provider: 04/04/19 12:43 Stated Complaint: DOG BITE PER PT Hx Obtained From: Patient Onset/Duration: Started Hours Ago Skin Exposure Onset/Duration: Hours Ago Timing: Constant Onset Severity: Moderate Current Severity: Moderate Pain Intensity: 2 Pain Scale Used: 0-10 Numeric Skin Location: Arm Aggravating Symptom(s): Nothing Alleviating Symptom(s): Nothing Associated Signs & Symptoms: Negative Related History: Possible Reaction to: Animal - Allergy/Home Medications Allergies/Adverse Reactions: Allergies Allergy/AdvReac Type Severity Reaction Status Date / Time Penicillins Allergy Mild Itching Verified 04/04/19 12:33 oxycodone Allergy GI Upset Verified 04/04/19 12:34 sesame seed Allergy Anaphylatic Verified 04/04/19 12:33 Shock PMH/Surg Hx/FS Hx/Imm Hx Previously Healthy: Yes Endocrine/Hematology History: Reports: Hx Anemia - past Denies: Hx Anticoagulant Therapy, Hx Blood Disorders, Hx Diabetes Cardiovascular History: Reports: Hx Hypertension, Other Cardiovascular Problems/ Disorders - mitral valve prolapse Denies: Hx Pacemaker/ICD Respiratory History: Reports: Hx Asthma Denies: Hx Sleep Apnea - would need study (snores at night, wakes in morning tired) GI History: Reports: Hx Gastroesophageal Reflux Disease, Hx Irritable Bowel, Hx Ulcer - aged 11 years old History: Denies: Hx Renal Disease Musculoskeletal History: Reports: Hx Arthritis, Hx Rheumatoid Arthritis, Hx Back Problems, Hx Osteoporosis Sensory History: Denies: Hx Hearing Aid Neurological History: Reports: Hx Migraine, Hx Transient Ischemic Attacks (TIA) - viral meningitis Psychiatric History: Reports: Hx Depression Denies: Hx Panic Disorder - Cancer History Cancer Type, 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 SKIN TAG REMOVED - Surgical History Surgery Procedure, Year, and Place: GASTRIC BYPASS. HYSTERECTOMY. GALLBLADDER. TONSILS/ADENOIDS. APPENDIX - Immunization History Hx Pertussis Vaccination: No Immunizations Up to Date: Yes Infectious Disease History: No Infectious Disease History: Denies: Traveled Outside the [place] in Last 30 Days - Family History Known Family History: Positive: Hypertension - Social History Occupation: Employed Full-time Lives: With Family Alcohol Use: None Hx Substance Use: Yes Substance Use Type: Reports: Marijuana Substance Use Comment - Amount & Last Used: medical; for pain and sleep Hx Tobacco Use: No Smoking Status (MU): Never Smoked Tobacco Review of Systems Constitutional: Negative Negative: Fever, Chills, Fatigue, Skin Diaphoresis Negative: Palpitations, Chest Pain Negative: Shortness Of Breath, Cough Genitourinary: Negative Positive: no symptoms reported, see HPI Positive: Arthralgia, Myalgia Positive: Other - multiple small lacerations/puncture wounds to the L forearm Neurological: Negative All Other Systems Reviewed And Are Negative: Yes Physical Exam Triage Information Reviewed: Yes Vital Signs On Initial Exam: Initial Vitals Temp Pulse Resp BP Pulse Ox 97.6 F 81 16 156/98 98 04/04/19 12:31 04/04/19 12:31 04/04/19 12:31 04/04/19 12:31 04/04/19 12:31 Vital Signs Reviewed: Yes Appearance: Positive: Well-Appearing, Well-Nourished Skin: Positive: Skin Color Reflects Adequate Perfusion, Other - multiple puncture wounds to the L forearm Head/Face: Positive: Normal Head/Face Inspection Eyes: Positive: EOMI, Conjunctiva Clear Neck: Positive: Supple, No Lymphadenopathy Respiratory/Lung Sounds: Positive: Clear to Auscultation, Breath Sounds Present Cardiovascular: Positive: RRR, Pulses are Symmetrical in both Upper and Lower Extremities Neurological: Positive: Speech Normal Psychiatric: Positive: Normal, Affect/Mood Appropriate AVPU Assessment: Alert Diagnostics - Vital Signs Vital Signs Temp Pulse Resp BP Pulse Ox 04/04/19 16:03 97.6 F 64 20 151/83 97 04/04/19 12:31 97.6 F 81 16 156/98 98 - Laboratory Lab Statement: Any lab studies that have been ordered have been reviewed, and results considered in the medical decision making process. Course/Dx - Course Course Of Treatment: During his course treatment, the patient's evaluated for left forearm injury from dog bite. Forearm x-ray obtained which shows no acute fractures. There are multiple small lacerations measuring between 0.5 cm and 1 cm in length appearing to be puncture wounds to the left dorsum of the forearm. Patient is able to move the extremity at the elbow, wrist and MCP joints without limitations. She does endorse discomfort to the entire arm. There is a small amount of ecchymosis throughout and a small amount of swelling. She is given doxycycline as she is pen allergic. She is given Vicodin and ibuprofen while in the ED. These are prescribed to her. Anabiotic ointment applied to areas and gauze wrapped. - Diagnoses Provider Diagnoses: Puncture wound, Dog bite Discharge - Sign-Out/Discharge Documenting (check all that apply): Patient Departure Patient Received Moderate/Deep Sedation with Procedure: No - Discharge Plan Condition: Stable Disposition: HOME Prescriptions: DOXYcycline CAP(*) [DOXYcycline 100MG CAP(*)] 100 mg PO BID #13 cap HYDROcodone/ACETAMIN 5-325 MG* [[place] 5-325 TAB*] 1 tab PO Q6H PRN #12 tab MDD 4 PRN Reason: Pain Patient Education Materials: Animal Bite (ED) Referrals: Marleni Jurado NP [Primary Care Provider] - Additional Instructions: doxycycline twice daily x 5 days hydrocodone up to four times daily Ibuprofen 600mg three times daily - Billing Disposition and Condition Condition: STABLE Disposition: Home
== END 2019-04-04 16:03 | disposition home or self-care (01) ==
LOC: ED 12:27
DX: S51.832A Puncture wound without foreign body of left forearm, initial encounter (principal); S51.812A Laceration without foreign body of left forearm, initial encounter; W54.0XXA Bitten by dog, initial encounter; Y92.9 Unspecified place or not applicable; Z88.5 Allergy status to narcotic agent; Z88.0 Allergy status to penicillin; Z91.018 Allergy to other foods
CPT/HCPCS: 99283; A9270-GY